=== PATIENT | female | born 1945 | race Caucasian/White ===

== ENCOUNTER → 2017-07-19 | Outpatient (CLI) | payer MEDICARE, OTHER ==
[~2017-07-19] MED LIST: ADVIL100 MG PO; CEPH500 PO; CHOL10002 PO; DULO60 PO; ESCI20 PO; HYDR1TAB94 PO; LOVA20 PO; NORT10 PO
== END ==
LOC: LAB SHORT 08:21 → PLD 08:21
DX: D22.5 Melanocytic nevi of trunk (principal)
CPT/HCPCS: 88305

== ENCOUNTER → 2018-12-13 | Outpatient (CLI) | payer MEDICARE, OTHER | END | disposition home or self-care (01) | LOC: PLD 11:45 → LAB SHORT 11:45 | DX: D48.5 Neoplasm of uncertain behavior of skin (principal) | CPT/HCPCS: 88305 ==

== ENCOUNTER → 2020-08-09 | Outpatient (CLI) | payer MEDICARE, OTHER ==
[~2020-08-09] MED LIST changes: +ALLEGRA ALLERG180 MG PO; +IBUP200 PO; +PRAZ2 PO
[2020-08-09 13:43] LABS: CHOL/HDL RATIO 3.4; Cholesterol 225 mg/dL (50-200); HDL Cholesterol 66 mg/dL (>39); LDL/HDL RATIO 2.2; Low Density Lipoprotein Chol 144 mg/dL (<110); Triglycerides 73 mg/dL (30-160); Very Low Density Lipoprot Chol 14 mg/dL (6-32)
== END | disposition home or self-care (01) ==
LOC: PLD 13:28 → LAB SHORT 13:28
PROVIDERS: Student in an Organized Health Care Education/Training Program
DX: E78.2 Mixed hyperlipidemia (principal); R35.0 Frequency of micturition; R73.01 Impaired fasting glucose; R30.9 Painful micturition, unspecified
CPT/HCPCS: 80061; 83036; 87077; 87086; 87186

== ENCOUNTER 2020-12-01 11:17 | Day surgery (SDC) | payer MEDICARE, OTHER ==
[~2020-12-01] VITALS: Ht 170.2 cm; Wt 69.0 kg
== END 2020-12-01 12:56 | disposition home or self-care (01) ==
LOC: ORSCSDS 11:17
PROVIDERS: Internal Medicine Gastroenterology
PROC: 0DBE8ZX Excision of Large Intestine, Via Natural or Artificial Opening Endoscopic, Diagnostic (ICD-10-PCS; principal; 2020-12-01 12:30)
PROC: 0DB68ZX Excision of Stomach, Via Natural or Artificial Opening Endoscopic, Diagnostic (ICD-10-PCS; principal; 2020-12-01 12:30)
PROC: 0DB98ZX Excision of Duodenum, Via Natural or Artificial Opening Endoscopic, Diagnostic (ICD-10-PCS; principal; 2020-12-01 12:30)
DX: R10.13 Epigastric pain (principal); K29.60 Other gastritis without bleeding; R11.11 Vomiting without nausea; K57.30 Diverticulosis of large intestine without perforation or abscess without bleeding; R19.4 Change in bowel habit; Z83.71 Family history of colonic polyps
CPT/HCPCS: 87081; 88305; J2704; J7120

== ENCOUNTER → 2022-08-11 | Outpatient (CLI) | payer MEDICARE, OTHER | END | disposition home or self-care (01) | LOC: LAB SHORT 08:10 → PLD 08:10 | DX: L60.2 Onychogryphosis (principal); B35.1 Tinea unguium | CPT/HCPCS: 88305; 88312 ==

== ENCOUNTER → 2023-11-03 | Outpatient (CLI) | payer MEDICARE, OTHER | END | disposition home or self-care (01) | LOC: LAB EV 12:22 → LAB SHORT 12:22 | DX: D04.5 Carcinoma in situ of skin of trunk (principal); L82.1 Other seborrheic keratosis ==

== ENCOUNTER → 2025-01-15 | Outpatient (CLI) | payer MEDICARE, OTHER ==
[2025-01-15 15:17] LABS: BASOPHILS ABSOLUTE AUTO 0.03 K/mm3 (0.00-0.23); BASOPHILS PERCENT AUTO 1 % (0-2); EOSINOPHILS ABSOLUTE AUTO 0.22 K/mm3 (0.00-0.68); EOSINOPHILS PERCENT AUTO 5 % (0-6); Hematocrit 35.6 % (33.0-51.0); Hemoglobin 12.1 g/dL (11.5-16.0); IMMATURE GRAN ABSOLUTE AUTO 0.01 K/mm3 (0.00-0.10); IMMATURE GRAN PERCENT AUTO 0 % (0-1); LYMPHOCYTES ABSOLUTE AUTO 1.16 K/mm3 (0.84-5.20); LYMPHOCYTES PERCENT AUTO 25 % (21-46); MONOCYTES ABSOLUTE AUTO 0.65 K/mm3 (0.16-1.47); MONOCYTES PERCENT AUTO 14 % (4-13); Mean Corpuscular HGB Conc 34.0 g/dL (31.5-36.5); Mean Corpuscular Volume 94 fL (80-100); NEUTROPHILS ABSOLUTE AUTO 2.50 K/mm3 (1.96-9.15); NEUTROPHILS PERCENT AUTO 55 % (41-73); NRBC ABSOLUTE 0.00 K/mm3 (0.00-0.02); NRBC Auto 0.0 /100 WBC (0.0-0.2); Platelet Count 223 K/mm3 (150-400); RDW Coefficient Variation 13.2 % (11.7-14.2); RDW Standard Deviation 44.8 fL (35.1-46.3)
[2025-01-15 15:34] LABS: Alanine Aminotransfer (ALT/SGP 23.0 U/L (12-78); Albumin, Blood 3.3 g/dL (3.4-5.0); Albumin/Globulin Ratio 1.0 (0.8-1.8); Anion Gap 10.0 mmol/L (3-11); Aspartate Aminotrans (AST/SGOT 17.0 U/L (12-37); Bilirubin, Total 0.4 mg/dL (0.1-1.0); Blood Urea Nitrogen 19.0 mg/dL (8-24); CO2, Blood 30.0 mmol/L (21-32); Calcium, Blood 8.8 mg/dL (8.5-10.1); Chloride, Blood 103.0 mmol/L (98-108); Creatinine, Blood 0.78 mg/dL (0.40-1.00); Globulin, Blood 3.3 g/dL (2.2-4.0); Glucose, Blood 115.0 mg/dL (70-99); Potassium, Blood 3.7 mmol/L (3.5-5.5); Sodium, Blood 139.0 mmol/L (136-145); Thyroid Stimulating Hormone 0.988 uIU/mL (0.360-4.800); Total Protein, Blood 6.6 g/dL (6.4-8.2)
== END | disposition home or self-care (01) ==
LOC: LAB SHORT 15:11 → LAB 15:11
PROVIDERS: Family Medicine
DX: R42 Dizziness and giddiness (principal); R53.83 Other fatigue
CPT/HCPCS: 80053; 83880; 84443; 84484; 85025; 85379